=== PATIENT | male | born 1955 | race Caucasian/White ===

== ENCOUNTER → 2019-05-21 | Outpatient (CLI) | payer SELFPAY ==
[~2019-05-21] MED LIST: ALBU90OI INH; ASPI325; ASPI81CH PO; CALCIUM PO; CHOL10002 PO; FOLI1; FOLIC ACID PO; LEVO750 PO; LOSA50 PO; METO100ER; METO25 PO; METTREX2.5; OMEP10ER; PRED1; Prednisone20 MG PO
== END | disposition home or self-care (01) ==
LOC: LAB SHORT 12:15 → LAB 12:15
DX: R05 Cough (principal)
CPT/HCPCS: 87070; 87205

== ENCOUNTER 2020-11-28 11:48 | Day surgery (SDC) | payer SELFPAY ==
[~2020-11-28] VITALS: Ht 177.8 cm; Wt 91.3 kg
[2020-11-28] MEDS ORDERED: Prednisone10 MG PO (12:32)
[2020-11-28] MEDS ORDERED: ALBU2.5V5 (12:32)
--- NOTE | 2020-11-28 13:24 | NUR ---
11/28/20 1324 Celina Grady History, Chart, Medications and Allergies reviewed before start of procedure.Patient confirms NPO status and agrees with scheduled surgery.PATIENT DETERMINED TO BE ASA APPROPRIATE FOR MODERATE SEDATION PRIOR TO START OF PROCEDURE BY . 3-LEAD EKG REVIEWED WITH PHYSICIAN PRIOR TO START OF PROCEDURE.MONITOR INTACT WITH CONTINUOUS PULSE OXIMETRY AND INTERMITTENT BP.
== END 2020-11-28 23:25 | disposition home or self-care (01) ==
LOC: ORSCMMR 11:48 → ORD 12:30 → ORSCMMR 12:30
PROVIDERS: Internal Medicine Pulmonary Disease
PROC: 0B9H8ZX Drainage of Lung Lingula, Via Natural or Artificial Opening Endoscopic, Diagnostic (ICD-10-PCS; principal; 2020-11-28 12:30)
PROC: 0B9D8ZX Drainage of Right Middle Lung Lobe, Via Natural or Artificial Opening Endoscopic, Diagnostic (ICD-10-PCS; principal; 2020-11-28 12:30)
DX: J21.9 Acute bronchiolitis, unspecified (principal); Z01.818 Encounter for other preprocedural examination; R05 Cough; R06.02 Shortness of breath; Z79.899 Other long term (current) drug therapy
CPT/HCPCS: 87015; 87070; 87077; 87102; 87116; 87185; 87186; 87205; 87206; 87252; 87254; 87486; 87581; A9270; J0171; J2001; J2250; J3010; J7120

== ENCOUNTER 2021-07-28 07:46 | Inpatient (IN) | payer SELFPAY ==
[~2021-07-28] VITALS: Ht 177.8 cm; Wt 99.8 kg
[~2021-07-28 07:46] MED LIST changes: +ALBU2.5V5; -CHOL10002 PO; -LOSA50 PO; -METO25 PO; +METO25ER PO; +VITAMIN D325 MC3 PO
[2021-07-28 08:49] LABS: BASOPHILS ABSOLUTE AUTO 0.02 K/mm3 (0.00-0.23); BASOPHILS PERCENT AUTO 0 % (0-2); EOSINOPHILS PERCENT AUTO 0 % (0-6); Hematocrit 44.2 % (37.0-53.0); Hemoglobin 15.5 g/dL (13.5-17.5); IMMATURE GRAN ABSOLUTE AUTO 0.11 K/mm3 (0.00-0.10); IMMATURE GRAN PERCENT AUTO 1 % (0-1); LYMPHOCYTES PERCENT AUTO 4 % (21-46); MONOCYTES ABSOLUTE AUTO 0.55 K/mm3 (0.16-1.47); MONOCYTES PERCENT AUTO 7 % (4-13); Mean Corpuscular HGB 30.3 pg (26.0-34.0); Mean Corpuscular HGB Conc 35.1 g/dL (31.5-36.5); Mean Corpuscular Volume 86 fL (80-100); Mean Platelet Volume 10.4 fL (9.1-12.4); NEUTROPHILS ABSOLUTE AUTO 7.07 K/mm3 (1.96-9.15); NEUTROPHILS PERCENT AUTO 88 % (41-73); Platelet Count 189 K/mm3 (150-400); RDW Coefficient Variation 11.2 % (11.7-14.2); RDW Standard Deviation 36.1 fL (35.1-46.3); Red Blood Cell Count 5.12 M/mm3 (4.30-5.90); White Blood Cell Count 8.05 K/mm3 (4.00-11.30)
[2021-07-28 09:11] LABS: Alanine Aminotransfer (ALT/SGP 29 U/L (12-78); Albumin, Blood 2.3 g/dL (3.4-5.0); Albumin/Globulin Ratio 0.8 (0.8-1.8); Alk Phos 52 U/L (50-136); Anion Gap 5 mmol/L (6-16); Aspartate Aminotrans (AST/SGOT 32 U/L (12-37); Bilirubin, Total 0.9 mg/dL (0.1-1.0); Blood Urea Nitrogen 19 mg/dL (8-24); CO2, Blood 26 mmol/L (21-32); Calcium, Blood 8.4 mg/dL (8.5-10.1); Chloride, Blood 103 mmol/L (98-108); Glomerular Filtration Rate >60 (60-); Glucose, Blood 104 mg/dL (70-99); Potassium, Blood 3.5 mmol/L (3.5-5.5); Sodium, Blood 134 mmol/L (136-145); Total Protein, Blood 5.3 g/dL (6.4-8.2); Troponin I 0.036 ng/mL (0.000-0.040)
[2021-07-28] MEDS ORDERED: PRED20 PO (09:22)
[2021-07-28 10:58] LABS: Adenovirus Not Detected (NOT DETECT); Coronavirus 229E Not Detected (NOT DETECT); Coronavirus HKU1 Not Detected (NOT DETECT); Coronavirus NL63 Not Detected (NOT DETECT); Coronavirus OC43 Not Detected (NOT DETECT); SARS-Cov-2 (COVID-19), BioFire Detected (NOT DETECT)
[2021-07-28 11:02] LABS: Bordetella pertussis Not Detected (NOT DETECT); Chlamydophila pneumoniae Not Detected (NOT DETECT); Human Metapneumovirus Not Detected (NOT DETECT); Human Rhinovirus/Enterovirus Not Detected (NOT DETECT); Influenza A/2009-H1 Not Detected (NOT DETECT); Influenza A/H1 Not Detected (NOT DETECT); Influenza A/H3 Not Detected (NOT DETECT); Influenza B Not Detected (NOT DETECT); Mycoplasma pneumoniae Not Detected (NOT DETECT); Parainfluenza Virus 1 Not Detected (NOT DETECT); Parainfluenza Virus 2 Not Detected (NOT DETECT); Parainfluenza Virus 3 Not Detected (NOT DETECT); Parainfluenza Virus 4 Not Detected (NOT DETECT); Respiratory Syncytial Virus Not Detected (NOT DETECT)
[2021-07-28] MEDS ORDERED: LOSA50 PO (14:05)
[2021-07-28] MEDS ORDERED: XARELTO20 MG PO (14:08)
[2021-07-28] MEDS ORDERED: AMOCLA875 PO (14:09)
[2021-07-28] MEDS ORDERED: BREO ELLIPTA 21 EAC1 INH (14:11)
[2021-07-28] MEDS ORDERED: ZINC220 PO (14:12)
[2021-07-28] MEDS ORDERED: C COMPLEX1000 M1 PO (14:12)
[2021-07-28] MEDS ORDERED: Vitamin B Comple1 EA PO (14:12)
--- NOTE | 2021-07-28 19:56 | NUR ---
END OF SHIFT SUMMARY: PATIENT ARRIVED FROM ED THIS AFTERNOON. PATIENT ABLE TO TRANSFER FROM STRETCHER TO BED. PRIOR TO RN GETTING INTO THE ROOM, THE PATIENT WALKED TO THE BATHROOM TO VOID. PATIENT WAS SHORT OF BREATH, BUT ONCE HE WAS BACK IN THE BED HE WAS 96% ON 2.5L VIA NC. PATIENT IS EAGER TO DO ALL THAT HE CAN TO GET BETTER. PATIENT SELF PRONING AND REPOSITIONING IN THE BED. O2 SATURATIONS STABLE AT 95-95% ON 2.5L. PATIENT WAS AFIB DURING THE SHIFT. NEAR THE END OF SHIFT, PATIENT INCREASED FROM 90S TO LOW 110'S. PATIENT REPORTS ANXIETY. ASSISTED WITH A FAN, COOLING THE ROOM, BACK RUB, AND ENCOURAGEMENT. PATIENT REPORTED FEELING BETTER.
[2021-07-29 04:55] LABS: BASOPHILS ABSOLUTE AUTO 0.02 K/mm3 (0.00-0.23); BASOPHILS PERCENT AUTO 0 % (0-2); EOSINOPHILS PERCENT AUTO 0 % (0-6); Hematocrit 44.3 % (37.0-53.0); Hemoglobin 15.3 g/dL (13.5-17.5); IMMATURE GRAN ABSOLUTE AUTO 0.06 K/mm3 (0.00-0.10); IMMATURE GRAN PERCENT AUTO 1 % (0-1); LYMPHOCYTES ABSOLUTE AUTO 0.59 K/mm3 (0.84-5.20); LYMPHOCYTES PERCENT AUTO 7 % (21-46); MONOCYTES ABSOLUTE AUTO 0.55 K/mm3 (0.16-1.47); MONOCYTES PERCENT AUTO 6 % (4-13); Mean Corpuscular HGB 30.5 pg (26.0-34.0); Mean Corpuscular HGB Conc 34.5 g/dL (31.5-36.5); Mean Corpuscular Volume 88 fL (80-100); Mean Platelet Volume 10.4 fL (9.1-12.4); NEUTROPHILS ABSOLUTE AUTO 7.46 K/mm3 (1.96-9.15); NEUTROPHILS PERCENT AUTO 86 % (41-73); Platelet Count 187 K/mm3 (150-400); RDW Coefficient Variation 11.4 % (11.7-14.2); RDW Standard Deviation 36.4 fL (35.1-46.3); Red Blood Cell Count 5.02 M/mm3 (4.30-5.90); White Blood Cell Count 8.68 K/mm3 (4.00-11.30)
[2021-07-29 05:18] LABS: Alanine Aminotransfer (ALT/SGP 32 U/L (12-78); Albumin, Blood 2.2 g/dL (3.4-5.0); Albumin/Globulin Ratio 0.7 (0.8-1.8); Alk Phos 49 U/L (50-136); Anion Gap 4 mmol/L (6-16); Aspartate Aminotrans (AST/SGOT 35 U/L (12-37); Bilirubin, Total 0.9 mg/dL (0.1-1.0); Blood Urea Nitrogen 18 mg/dL (8-24); CO2, Blood 28 mmol/L (21-32); Calcium, Blood 8.1 mg/dL (8.5-10.1); Chloride, Blood 101 mmol/L (98-108); Creatinine, Blood 1.06 mg/dL (0.60-1.20); Globulin, Blood 3.2 g/dL (2.2-4.0); Glomerular Filtration Rate >60 (60-); Glucose, Blood 94 mg/dL (70-99); Potassium, Blood 4.4 mmol/L (3.5-5.5); Sodium, Blood 133 mmol/L (136-145); Total Protein, Blood 5.4 g/dL (6.4-8.2)
--- NOTE | 2021-07-29 05:57 | NUR ---
SHIFT SUMMARY PT IS A FULL CODE ADMITTED FOR COVID 19+. THE PLAN FOR THIS PT IS TO ADMINISTER IV STEROIDS, AND SUPPLEMENTAL 02. NO DISTRESS NOTED DURING THIS SHIFT. PT HAS BEEN TREATED TWICE THIS SHIFT FOR A TEMPT OF 101.9 AND 100.0. CURRENT TEMP IS 98.8.
--- NOTE | 2021-07-29 13:29 | NUR ---
Spiritual Care visit provided. I reassured pt that his oxygen needs were relatively low compared to other pts. His family have all have covid yet he was the only one to be severly impacted. I prayed thanks for their safety and for Lobo's rapid recovery with no complications. The patient expressed gratitude.
--- NOTE | 2021-07-29 18:51 | NUR ---
PT A & O ABLE TO MAKE NEEDS KNONW. SBA WITH TRANSFERS. MAINTAINED O2 SATURATIONS DURING SHIFT. 2.5l OF O2 ALL SHIFT STATED FEELING BETTER THAN HE HAS IN WEEKS. LUNGS DIM. NO ACUTE CHANGES TO REPORT THIS SHIFT.
--- NOTE | 2021-07-30 04:49 | NUR ---
PT IS A FULL CODE ADMITTED FOR COVID 19+. PLQAN FOR THIS PT IS TO USE SUPPLEMENTAL 02, AND CONTINUE IV STERIODS. NO DISTRESS NOTED DURING THIS SHIFT. PT IS AFIB ON TELE WITH A RATE OF 89. SATS 90-95. PT [id number].
[2021-07-30 08:58] LABS: Troponin I <0.015 ng/mL (0.000-0.040)
--- NOTE | 2021-07-30 11:00 | NUR ---
Late entry copied from [facility] EMR UPDATE 07/29/21: DAY 2 OF HOSPITALIZATION. PATIENT'S OXYGEN NEEDS HAVE REMAINED LOW AT 2-4 LPM NC. FEELING BETTER TODAY. NOT YET APPROPRIATE FOR DISCHARGE PER CHART REVIEW. CURRENT PLAN FOR PT. TO RETURN HOME AT TIME OF DISCHARGE IF ABLE TO COMPLETE ADLS WITH MINIMAL ASSISTANCE. PT. LIVES WITH ANUPAMA. ANTICIPATE NEEDS AT TIME OF DISCHARGE TO INCLUDE: HOME O2 EVAL., POSSIBLE NEED FOR O2, RAJAN/JERAD SANDOVAL, HOSPITAL F/U APPT. WITH PCP WITHIN 5-7 DAYS POST DISCHARGE.
--- NOTE | 2021-07-30 11:01 | NUR ---
UPDATE 07/30/21: DAY 3 OF HOSPITALIZATION. PATIENT'S OXYGEN NEEDS HAVE REMAINED LOW AT 2-4 LPM NC. HE IS SCHEDULED FOR AN ECHO TODAY. NO SIGNIFICANT CHANGES NOTED OVERNIGHT. PT. COULD POTENTIALLY BE APPROPRIATE FOR DISCHARGE WITHIN THE NEXT 24-72 HOURS PER CHART REVIEW. PLAN TO REACH OUT TO HIS ANUPAMA THIS AFTERNOON. CURRENT DISCHARGE PLAN IS FOR PT. TO RETURN HOME AT TIME OF DISCHARGE IF ABLE TO COMPLETE ADLS WITH MINIMAL ASSISTANCE. PT. LIVES WITH ANUPAMA. ANTICIPATE NEEDS AT TIME OF DISCHARGE TO INCLUDE: HOME O2 EVAL., POSSIBLE NEED FOR O2, RAJAN/JERAD SAMPLES, HOSPITAL F/U APPT. WITH PCP WITHIN 5-7 DAYS POST DISCHARGE.
--- NOTE | 2021-07-30 15:40 | NUR ---
Update 07/30/21 1530: Attempted to contact patient's Abby to provide update regarding patient's care. Left message advising not urgent but would be happy to provide with updates. Abby has my contact information.
--- NOTE | 2021-07-30 19:23 | NUR ---
SHIFT SUMMARY: NO ACUTE EVENTS TO REPORT THIS SHIFT. PT A&O; CALM AND COOPERATIVE WITH CARE. NO C/O PAIN / NAUSEA THIS SHIFT. O2 CONTINUING @ 2L. STEROIDS CONTINUING. REPORT GIVEN TO ONCOMING RN.
--- NOTE | 2021-07-31 04:23 | NUR ---
SHIFT SUMMARY PT ADMITTED FOR COVID 19+. ON 02 SATS STABLE. ON TELE AFIB. HEART RATE DID ELEVATE TO 140S DURING THIS SHIFT BUT DID NOT SUSTAIN. NO DISTRESS NOTED. PT RESTING. VOICES NO CONCERNS DURING THIS SHIFT. CALL LIGHT WITHIN REACH.
--- NOTE | 2021-07-31 15:33 | NUR ---
07/31/21- pt is stable to discharge and will order home O2. [facility] will start home health services. Spoke with the pt over the phone. Will order oxygen through [facility] to be delivered prior to him going home. Discussed home health and pt will be contacted by [facility]. Scheduled tele-hospital f.u appt with Dr. Driver on 08/04/21 at noon.-al
--- NOTE | 2021-07-31 15:42 | NUR ---
07/31/21- PT IS STABLE TO DISCHARGE AND WILL ORDER HOME O2. [facility] WILL START HOME HEALTH SERVICES. SPOKE WITH THE PT OVER THE PHONE. WILL ORDER OXYGEN THROUGH [facility] TO BE DELIVERED PRIOR TO HIM GOING HOME. DISCUSSED HOME HEALTH AND PT WILL BE CONTACTED BY [facility]. SCHEDULED TELE-HOSPITAL F.U APPT WITH DR. RUIZ ON 08/04/21 AT NOON.-ISABEL
[2021-07-31] MEDS ORDERED: ASPI325 PO (17:39)
[2021-07-31] MEDS ORDERED: MITIGARE0.6 MG PO (17:39)
[2021-07-31] MEDS ORDERED: FAMO40 PO (17:40)
[2021-07-31] MEDS ORDERED: GUAI600T33 PO (17:40)
--- NOTE | 2021-07-31 18:26 | NUR ---
PATIENT DISCHARGE: PATIENT DISCHARGED TO HOME WITH HOME HEALTH THIS SHIFT. MEDICATION RECONCILIATION COMPLETED; MED LIST FAXED TO [facility]. DISCHARGE EDUCATION COMPLETED WITH PATIENT. PATIENT TRANSPORTED TO EXIT BY [facility] STAFF WITH WHEELCHAIR AT 1820. PATIENT DEPARTED [facility] VIA PRIVATE AUTO.
== END 2021-07-31 18:24 | disposition home health service (06) | DRG 177 ==
LOC: ER 07:46 → MEDS 13:11 → ENPENDDIS 07-31 15:48 → MEDS 07-31 18:24
PROVIDERS: Emergency Medicine; ADMIT Family Medicine
PROC: 3E0333Z Introduction of Anti-inflammatory into Peripheral Vein, Percutaneous Approach (ICD-10-PCS; principal; 2021-07-28)
PROC: 8E0ZXY6 Isolation (ICD-10-PCS; 2021-07-28)
DX: U07.1 COVID-19 (principal); J96.01 Acute respiratory failure with hypoxia; J12.82 Pneumonia due to coronavirus disease 2019; I31.3 Pericardial effusion (noninflammatory); M31.30 Wegener's granulomatosis without renal involvement; I50.32 Chronic diastolic (congestive) heart failure; D84.822 Immunodeficiency due to external causes; M31.31 Wegener's granulomatosis with renal involvement; D84.821 Immunodeficiency due to drugs; I48.91 Unspecified atrial fibrillation; G43.909 Migraine, unspecified, not intractable, without status migrainosus; Z98.890 Other specified postprocedural states; Z79.899 Other long term (current) drug therapy; G47.33 Obstructive sleep apnea (adult) (pediatric); Z96.641 Presence of right artificial hip joint; I11.0 Hypertensive heart disease with heart failure
CPT/HCPCS: 0202U; 36415; 71045; 71260; 80053; 83605; 83880; 84145; 84484; 85025; 86140; 87040; 93005; 93010; 93306; 94762; 96365; 96367; 97116; 97162; 97530; 99285-25; A9270; J0456; J0696; J1100; J1650; J2920; J7050; Q9967

== ENCOUNTER 2022-09-17 04:59 | Inpatient (IN) | payer OTHER ==
[~2022-09-17] VITALS: Ht 177.8 cm; Wt 102.7 kg
[~2022-09-17 04:59] MED LIST changes: +AMOCLA875 PO; +ASPI325 PO; +BREO ELLIPTA 21 EAC1 INH; +C COMPLEX1000 M1 PO; +FAMO40 PO; +GUAI600T33 PO; +LOSA50 PO; +MITIGARE0.6 MG PO; +PRED20 PO; +Vitamin B Comple1 EA PO; +XARELTO20 MG PO; +ZINC220 PO
[2022-09-17 05:56] LABS: BASOPHILS ABSOLUTE AUTO 0.04 K/mm3 (0.00-0.23); BASOPHILS PERCENT AUTO 0 % (0-2); EOSINOPHILS ABSOLUTE AUTO 0.29 K/mm3 (0.00-0.68); EOSINOPHILS PERCENT AUTO 2 % (0-6); Hematocrit 52.5 % (37.0-53.0); IMMATURE GRAN ABSOLUTE AUTO 0.05 K/mm3 (0.00-0.10); IMMATURE GRAN PERCENT AUTO 0 % (0-1); LYMPHOCYTES ABSOLUTE AUTO 0.87 K/mm3 (0.84-5.20); LYMPHOCYTES PERCENT AUTO 6 % (21-46); MONOCYTES ABSOLUTE AUTO 0.88 K/mm3 (0.16-1.47); MONOCYTES PERCENT AUTO 6 % (4-13); Mean Corpuscular HGB 30.7 pg (26.0-34.0); Mean Corpuscular HGB Conc 34.3 g/dL (31.5-36.5); Mean Corpuscular Volume 89 fL (80-100); Mean Platelet Volume 9.8 fL (9.1-12.4); NEUTROPHILS ABSOLUTE AUTO 13.17 K/mm3 (1.96-9.15); NEUTROPHILS PERCENT AUTO 86 % (41-73); Platelet Count 266 K/mm3 (150-400); RDW Standard Deviation 39.3 fL (35.1-46.3); Red Blood Cell Count 5.87 M/mm3 (4.30-5.90)
[2022-09-17 06:18] LABS: Albumin, Blood 3.7 g/dL (3.4-5.0); Albumin/Globulin Ratio 1.1 (0.8-1.8); Bilirubin, Total 1.4 mg/dL (0.1-1.0); Bun/Creatinine Ratio 23.1 (12.0-20.0); Creatinine, Blood 1.04 mg/dL (0.60-1.20); Globulin, Blood 3.3 g/dL (2.2-4.0); Potassium, Blood 4.1 mmol/L (3.5-5.5)
[2022-09-17] MEDS ORDERED: ASPI325 PO (06:58)
[2022-09-17] MEDS ORDERED: [UNRECOGNIZED DRUG - OTHER] IV (07:00)
[2022-09-17] MEDS ORDERED: EPINEPHRINE IV (07:00)
[2022-09-17] MEDS ORDERED: PEPCID40 MG PO (07:01)
[2022-09-17] MEDS ORDERED: Breo Ellipta 200-25 INH (07:02)
[2022-09-17] MEDS ORDERED: LOSARTAN POTAS100 M1 PO (07:03)
[2022-09-17] MEDS ORDERED: METO25ER PO (07:05)
[2022-09-17] MEDS ORDERED: Cialis10 MG PO (07:06)
[2022-09-17 07:38] LABS: Prothrombin Time Results 10.5 Sec (9.7-11.5)
[2022-09-17 10:46] LABS: Hematocrit 52.3 % (37.0-53.0); Hemoglobin 17.4 g/dL (13.5-17.5)
--- NOTE | 2022-09-17 18:26 | NUR ---
REPORT GIVEN TO OTHER VIVIAN Lopez.
--- NOTE | 2022-09-17 18:55 | NUR ---
09/17/22 1855 Dadnre Lockwood See Anesthesia record. MONITOR INTACT WITH CONTINUOUS PULSE OXIMETRY AND INTERMITTENT BP. O2 VIA POM INTACT THROUGHOUT SEDATION/PROCEDURE.
--- NOTE | 2022-09-17 19:03 | NUR ---
ADMISSION/SHIFT SUMMARY: PT ARRIVES TO UNIT APPROX 1000 TODAY. PT ARRIVES A&Ox4, COOPERATIVE W/CARE. O2 SATS >92% ON RA, PT REPORTS CHRONIC SOB AND DENIES INCREASED SOB AT THIS TIME. AFIB ON MONITOR WITH RATE 100-120s, PT STATES AT BASELINE HE IS USUALLY IN AFIB W/RATE 110s. PT DENIES CP. ONE EPISODE EMESIS, NO BLOOD NOTED. PT REPORTS LOOSE STOOLS, BUT NO SIGNS OF ACTIVE BLEEDING. PT TO DAY SURGERY APPROX 1700 FOR UPPER SCOPE, LR AND PANTOPRAZOLE ON STANDBY. PT RETURNS AT THIS TIME, WHILE REPORT BEING GIVEN TO VIVIAN MCADAMS.
[2022-09-17 19:29] LABS: Hematocrit 49.6 % (37.0-53.0); Hemoglobin 16.5 g/dL (13.5-17.5)
[2022-09-18 04:00] LABS: Hematocrit 47.4 % (37.0-53.0); Hemoglobin 16.1 g/dL (13.5-17.5)
--- NOTE | 2022-09-18 05:05 | NUR ---
SHIFT SUMMARY: PATIENT VSS ON RA, DENIES UNUSUAL SOB OR CHEST PAIN. MEDICATED PER EMAR. DR. LOBO REVIEWED SCOPE RESULTS AND CARE PLAN WITH PATIENT'S FAMILY AT BEDSIDE - OKAY TO D/C TODAY FROM GI PERSPECTIVE. TOLERATING PO INTAKE WELL. PLEASANT AND COOPERATIVE WITH CARE, USES CALL LIGHT APPROPRIATELY. WILL CONTINUE TO MONITOR AND REPORT TO ONCOMING RN.
[2022-09-18 06:55] LABS: BASOPHILS ABSOLUTE AUTO 0.02 K/mm3 (0.00-0.23); BASOPHILS PERCENT AUTO 0 % (0-2); EOSINOPHILS PERCENT AUTO 0 % (0-6); Hematocrit 48.1 % (37.0-53.0); Hemoglobin 16.3 g/dL (13.5-17.5); IMMATURE GRAN ABSOLUTE AUTO 0.01 K/mm3 (0.00-0.10); IMMATURE GRAN PERCENT AUTO 0 % (0-1); LYMPHOCYTES ABSOLUTE AUTO 0.25 K/mm3 (0.84-5.20); LYMPHOCYTES PERCENT AUTO 4 % (21-46); MONOCYTES ABSOLUTE AUTO 0.36 K/mm3 (0.16-1.47); MONOCYTES PERCENT AUTO 6 % (4-13); Mean Corpuscular HGB 30.7 pg (26.0-34.0); Mean Corpuscular HGB Conc 33.9 g/dL (31.5-36.5); Mean Corpuscular Volume 91 fL (80-100); Mean Platelet Volume 10.2 fL (9.1-12.4); NEUTROPHILS PERCENT AUTO 90 % (41-73); Platelet Count 195 K/mm3 (150-400); RDW Coefficient Variation 12.2 % (11.7-14.2); RDW Standard Deviation 40.5 fL (35.1-46.3); Red Blood Cell Count 5.31 M/mm3 (4.30-5.90); White Blood Cell Count 6.24 K/mm3 (4.00-11.30)
--- NOTE | 2022-09-18 07:00 | NUR ---
ASSUME CARE: I have assumed care of this patient.
[2022-09-18] MEDS ORDERED: PANT40 PO (09:46)
[2022-09-18] MEDS ORDERED: SUCR1 PO (09:50)
--- NOTE | 2022-09-18 10:19 | NUR ---
DISCHARGE: pt provided with discharge paperwork. RN discussed medication adherence, follow up instructions, and return precautions. Pt verbalized understanding and agreement. IV's discontinued. Pt dressed independantly and wheeled out by DIRECTOR TALENT via wheelchair.
== END 2022-09-18 10:22 | disposition home or self-care (01) | DRG 381 ==
LOC: ER 04:59 → PCU 06:54
PROVIDERS: Internal Medicine Gastroenterology; Student in an Organized Health Care Education/Training Program; ADMIT Internal Medicine
PROC: 0DJ08ZZ Inspection of Upper Intestinal Tract, Via Natural or Artificial Opening Endoscopic (ICD-10-PCS; principal; 2022-09-17 17:30)
DX: K22.11 Ulcer of esophagus with bleeding (principal); M31.30 Wegener's granulomatosis without renal involvement; I10 Essential (primary) hypertension; E78.5 Hyperlipidemia, unspecified; K21.9 Gastro-esophageal reflux disease without esophagitis; K29.00 Acute gastritis without bleeding; K44.9 Diaphragmatic hernia without obstruction or gangrene; J45.909 Unspecified asthma, uncomplicated; Z98.890 Other specified postprocedural states; Z79.899 Other long term (current) drug therapy; N28.9 Disorder of kidney and ureter, unspecified; Z87.891 Personal history of nicotine dependence; Z96.641 Presence of right artificial hip joint; G47.33 Obstructive sleep apnea (adult) (pediatric)
CPT/HCPCS: 36415; 71045; 74174; 80053; 83690; 85014; 85018; 85025; 85610; 86677; 86850; 86900; 86901; 93005; 93010; A9270; C9113; J1100; J2001; J2370; J2405; J2704; J3010; J7030; J7120; Q9967

== ENCOUNTER → 2022-10-25 | Outpatient (CLI) | payer OTHER ==
[~2022-10-25] MED LIST changes: +Breo Ellipta 200-25 INH; +Cialis10 MG PO; +EPINEPHRINE IV; +LOSARTAN POTAS100 M1 PO; +PANT40 PO; +PEPCID40 MG PO; +SUCR1 PO; +[UNRECOGNIZED DRUG - OTHER] IV
== END ==
LOC: LAB SHORT 16:14 → LAB 16:14
DX: J18.0 Bronchopneumonia, unspecified organism (principal)
CPT/HCPCS: 87070; 87077; 87185; 87205

== ENCOUNTER → 2023-01-08 | Outpatient (CLI) | payer OTHER ==
[~2023-01-08] MED LIST changes: +Prednisone10 MG PO
[2023-01-08 14:50] LABS: BASOPHILS ABSOLUTE AUTO 0.06 K/mm3 (0.00-0.23); BASOPHILS PERCENT AUTO 1 % (0-2); EOSINOPHILS PERCENT AUTO 2 % (0-6); Hematocrit 51.9 % (37.0-53.0); Hemoglobin 17.6 g/dL (13.5-17.5); IMMATURE GRAN ABSOLUTE AUTO 0.02 K/mm3 (0.00-0.10); IMMATURE GRAN PERCENT AUTO 0 % (0-1); LYMPHOCYTES ABSOLUTE AUTO 0.86 K/mm3 (0.84-5.20); LYMPHOCYTES PERCENT AUTO 7 % (21-46); MONOCYTES ABSOLUTE AUTO 1.15 K/mm3 (0.16-1.47); MONOCYTES PERCENT AUTO 10 % (4-13); Mean Corpuscular HGB 31.1 pg (26.0-34.0); Mean Corpuscular HGB Conc 33.9 g/dL (31.5-36.5); Mean Corpuscular Volume 92 fL (80-100); Mean Platelet Volume 9.5 fL (9.1-12.4); NEUTROPHILS ABSOLUTE AUTO 9.38 K/mm3 (1.96-9.15); NEUTROPHILS PERCENT AUTO 80 % (41-73); Platelet Count 194 K/mm3 (150-400); RDW Standard Deviation 43.9 fL (35.1-46.3); Red Blood Cell Count 5.66 M/mm3 (4.30-5.90); White Blood Cell Count 11.67 K/mm3 (4.00-11.30)
[2023-01-08 15:00] LABS: Albumin, Blood 3.7 g/dL (3.4-5.0); Albumin/Globulin Ratio 1.3 (0.8-1.8); Bun/Creatinine Ratio 16.4 (12.0-20.0); Calcium, Blood 8.9 mg/dL (8.5-10.1); Creatinine, Blood 1.16 mg/dL (0.60-1.20); Globulin, Blood 2.9 g/dL (2.2-4.0); Potassium, Blood 4.3 mmol/L (3.5-5.5); Total Protein, Blood 6.6 g/dL (6.4-8.2)
== END | disposition home or self-care (01) ==
LOC: LAB SHORT 14:42 → LAB 14:42
PROVIDERS: Physician Assistant
DX: R07.9 Chest pain, unspecified (principal); R06.00 Dyspnea, unspecified
CPT/HCPCS: 80053; 83880; 84484; 85025

== ENCOUNTER → 2023-10-27 | Outpatient (CLI) | payer OTHER | LOC: LAB 10:49 → LAB SHORT 10:49 | DX: R31.9 Hematuria, unspecified (principal) | CPT/HCPCS: 87086 ==

== ENCOUNTER 2024-01-20 10:57 | Emergency (ER) | payer OTHER ==
[~2024-01-20] VITALS: Ht 177.8 cm; Wt 108.9 kg
[2024-01-20 11:25] LABS: BASOPHILS ABSOLUTE AUTO 0.05 K/mm3 (0.00-0.23); BASOPHILS PERCENT AUTO 1 % (0-2); EOSINOPHILS ABSOLUTE AUTO 0.03 K/mm3 (0.00-0.68); EOSINOPHILS PERCENT AUTO 0 % (0-6); Hematocrit 49.9 % (37.0-53.0); Hemoglobin 16.9 g/dL (13.5-17.5); IMMATURE GRAN ABSOLUTE AUTO 0.05 K/mm3 (0.00-0.10); IMMATURE GRAN PERCENT AUTO 1 % (0-1); LYMPHOCYTES ABSOLUTE AUTO 1.06 K/mm3 (0.84-5.20); LYMPHOCYTES PERCENT AUTO 13 % (21-46); MONOCYTES ABSOLUTE AUTO 0.87 K/mm3 (0.16-1.47); MONOCYTES PERCENT AUTO 11 % (4-13); Mean Corpuscular HGB 30.5 pg (26.0-34.0); Mean Corpuscular HGB Conc 33.9 g/dL (31.5-36.5); Mean Corpuscular Volume 90 fL (80-100); Mean Platelet Volume 10.2 fL (9.1-12.4); NEUTROPHILS ABSOLUTE AUTO 6.24 K/mm3 (1.96-9.15); NEUTROPHILS PERCENT AUTO 75 % (41-73); Platelet Count 257 K/mm3 (150-400); RDW Coefficient Variation 12.3 % (11.7-14.2); RDW Standard Deviation 40.6 fL (35.1-46.3); Red Blood Cell Count 5.54 M/mm3 (4.30-5.90)
[2024-01-20 12:24] LABS: Influenza A, PCR NEGATIVE (NEGATIVE); Influenza B, PCR NEGATIVE (NEGATIVE); Resp Syncytial Virus, PCR NEGATIVE (NEGATIVE); SARS-Cov-2 (COVID-19) PCR, MMC NEGATIVE (NEGATIVE)
[2024-01-20 12:50] LABS: Albumin, Blood 2.8 g/dL (3.4-5.0); Albumin/Globulin Ratio 0.6 (0.8-1.8); Bilirubin, Total 1.2 mg/dL (0.1-1.0); Bun/Creatinine Ratio 20.3 (12.0-20.0); Calcium, Blood 9.1 mg/dL (8.5-10.1); Creatinine, Blood 1.23 mg/dL (0.60-1.20); Globulin, Blood 4.6 g/dL (2.2-4.0); Potassium, Blood 3.6 mmol/L (3.5-5.5); Total Protein, Blood 7.4 g/dL (6.4-8.2)
[2024-01-20] MEDS ORDERED: Ipratropium/Albuterol SulF 2.5-0.5MG/3 ML Amp INH ONE (13:45)
[2024-01-20] MEDS ORDERED: PRED20 PO (14:36)
[2024-01-20 14:45] VITALS: BP 105/73
== END 2024-01-20 14:56 | disposition home or self-care (01) ==
LOC: ER 10:57
PROVIDERS: Physician Assistant
DX: J18.0 Bronchopneumonia, unspecified organism (principal); J40 Bronchitis, not specified as acute or chronic; J98.01 Acute bronchospasm; Z79.899 Other long term (current) drug therapy; Z87.891 Personal history of nicotine dependence
CPT/HCPCS: 0241U; 80053; 83605; 85025; 94640; 94664